=== PATIENT | female | born 1980 | race Caucasian/White ===

== ENCOUNTER → 2020-10-05 | Emergency (ER) | payer OTHER ==
[~2020-10-05] VITALS: Ht 172.7 cm; Wt 117.9 kg
[~2020-10-05] MED LIST: LOSARTAN-HCTZ1 EAC1 PO; PROBIOTIC1 EAC2 PO
== END | disposition home or self-care (01) ==
LOC: ER 07:29
DX: K52.89 Other specified noninfective gastroenteritis and colitis (principal); R10.11 Right upper quadrant pain